=== PATIENT | female | born 1985 | race Caucasian/White ===

== ENCOUNTER 2019-05-20 13:29 | Inpatient (IN) | payer OTHER ==
[2019-05-20] MEDS ORDERED: LIDOCAINE 0.5% (PF) 5 MG/ML (50 ML SDV) SQ PRN (14:49)
[2019-05-20] MEDS ORDERED: METHYLERGONOVINE 0.2 MG/ML 1 ML AMP IM PRN (14:49)
[2019-05-20] MEDS ORDERED: OXYTOCIN 10 UNIT/ML 1 ML VIAL IM PRN (14:49)
[2019-05-20] MEDS ORDERED: TERBUTALINE 1 MG/ML VIAL SQ PRN (14:49)
[2019-05-20] MEDS ORDERED: CARBOPROST TROMETHAMINE 250 MCG/ML 1 ML AMP IM PRN (14:49)
[2019-05-20] MEDS ORDERED: LACTATED RINGERS 1,000 ML IV SCH (15:00)
[2019-05-20 15:28] LABS: Basophils % (A) 0 %; Eosinophils # (A) 0.1 k/uL (0-0.7); Eosinophils % (A) 1 %; HCT 37.3 % (34.0-46.0); HGB 12.3 gm/dL (11.4-16.0); Lymphocytes # (A) 1.9 k/uL (1.0-4.8); Lymphocytes % (A) 14 %; MCH 27.9 pg (25.0-35.0); MCHC 32.9 g/dL (31.0-37.0); MCV 84.9 fL (80.0-100.0); Monocytes # (A) 0.6 k/uL (0-1.0); Monocytes % (A) 5 %; Neutrophils # (A) 10.8 k/uL (1.3-7.7); Neutrophils % (A) 79 %; Platelet Count 266 k/uL (150-450); RDW 15.1 % (11.5-15.5); WBC 13.6 k/uL (3.8-10.6)
--- NOTE | 2019-05-20 16:46 | P.HPOB ---
History of Present Illness H&P Date: 05/20/19 Chief Complaint: Labor at 39-4/7 weeks' gestation This is a 33-year-old 2 para 1001 woman with an estimated due date of 05/24/2019 who presents at 39+ weeks gestation in spontaneous active labor. Regular onset of painful uterine contractions started earlier today. Upon presentation she was found to be 4+ centimeters dilated and jackson every 1- 2 minutes. She denies leakage of fluids or vaginal bleeding. She's had an entirely unremarkable up until this point. Her obstetric history is significant for a previous on term spontaneous vaginal delivery in 2016 of a 7 lbs. 15 oz. male infant. She is blood type O positive, antibody screen negative, rubella immune, VDRL nonreactive, hep Meenu surface antigen negative, HIV negative, gonorrhea and clinic cultures negative, diabetes screening within normal limits, group B strep negative. . Review of Systems All systems: negative Past Medical History Past Medical History: No Reported History Additional Past Medical History / Comment(s): 1 History of Any Multi-Drug Resistant Organisms: None Reported Past Surgical History: No Surgical Hx Reported Past Anesthesia/Blood Transfusion Reactions: No Reported Reaction Smoking Status: Never smoker - Past Family History Father History Unknown: Yes Medications and Allergies Home Medications Medication Instructions Recorded Confirmed Type 2/Iron/Folic Acid/Om3 1 tab PO DAILY 10/29/15 05/20/19 History [Complete Avni Dha] Allergies Allergy/AdvReac Type Severity Reaction Status Date / Time No Known Allergies Allergy Verified 05/20/19 13:38 Exam Vital Signs Temp Pulse Resp BP Pulse Ox 05/20/19 15:53 96.5 F L 117 H 18 139/83 100 Intake and Output 05/20/19 05/20/19 05/20/19 06:59 14:59 22:59 Other: Weight 91.172 kg This is a comfortable appearing, visibly gravid female. Targeted physical exam is performed. Cervix is 7+ centimeters dilated with bulging membranes. She saw 100% effaced. Artificial rupture of membranes is undertaken and copious clear fluid is noted. heart tones are category 1. She is jackson every 2 minutes spontaneously. Results Result Diagrams: 05/20/19 15:05 Abnormal Lab Results - Last 24 Hours (Table) 05/20/19 Range/Units 15:05 WBC 13.6 H (3.8-10.6) k/uL Neutrophils # 10.8 H (1.3-7.7) k/uL Assessment and Plan (1) 39 weeks gestation of Current Visit: No Status: Acute Code(s): Z3A.39 - 39 WEEKS GESTATION OF SNOMED Code(s): 37828284 (2) Spontaneous onset of labor Current Visit: No Status: Acute Code(s): SRQ1111 - SNOMED Code(s): 37679181 Plan: 33-year-old 2 para 1 woman admitted at 39+ weeks gestation in spontan eous active labor. status currently reassuring. She is group B strep negative and Rh+. I anticipate normal spontaneous vaginal delivery.
[2019-05-20 17:02] VITALS: BMI 32.4
[2019-05-20] MEDS ORDERED: BENZOCAINE/MENTHOL SPRAY 1 GM/SPRAY AEROSOL TOPICAL PRN (19:10)
[2019-05-20] MEDS ORDERED: WITCH HAZEL 1 EACH MED..PAD TOPICAL PRN (19:10)
[2019-05-20] MEDS ORDERED: ACETAMINOPHEN TAB 325 MG TAB PO PRN (19:10)
[2019-05-20] MEDS ORDERED: LANOLIN CREAM 5 GM TUBE TOPICAL PRN (19:10)
[2019-05-20] MEDS ORDERED: diphenhydrAMINE 25 MG CAP PO PRN (19:10)
[2019-05-20] MEDS ORDERED: HYDROCORTISONE 2.5% RECTAL CREAM 30 GM TUBE RECTAL PRN (19:10)
[2019-05-20] MEDS ORDERED: IBUPROFEN 600 MG TAB PO PRN (19:10)
[2019-05-20] MEDS ORDERED: SIMETHICONE 80 MG CHEWABLE PO PRN (19:10)
[2019-05-20] MEDS ORDERED: diphenhydrAMINE 50 MG/ML 1 ML VIAL IVP PRN ×2 (19:10)
[2019-05-20] MEDS ORDERED: diphenhydrAMINE 50 MG CAP PO PRN (19:10)
[2019-05-20] MEDS ORDERED: ZOLPIDEM 5 MG TAB PO PRN (19:10)
--- NOTE | 2019-05-20 19:10 | P.PROBDLV ---
Vaginal Delivery Note - . Vaginal Delivery Note: Findings: Male infant in the vertex left occiput anterior position with Apgars of 9 at 1 minute and 9 at 5 minutes weighing 8 lbs. 5 oz., 3785 g. Intact, three-vessel cord placenta. First-degree perineal laceration. Mild atony with EBL approximately 300 mL's. Delivery summary: This is a 33-year-old 2 para 1001 woman who presented in spontaneous active labor at 39-3/7 weeks gestation. Following admission she did undergo artificial rupture of membranes and had an unremarkable progression to complete cervical dilation. She had reassuring heart tones throughout the first stage of labor. She had strong urge to push once complete and was repositioned and prepped in the modified Kylah position. After an approximately 5 minute second stage of labor she was . The head delivered from the left occiput anterior position followed rapidly by the anterior and posterior shoulders. The resting. Delivered onto the field. The nose and mouth were bulb suctioned. The cord was clamped and cut. Apgars were 9 at 1 minute and 9 at 5 minutes and weight was 8 lbs. 5 oz. An intact, three- vessel cord placenta was rapidly delivered after a two-minute third stage of labor. The uterus was moderately atonic which was managed with bimanual massage and Pitocin intravenously. The vagina was then inspected and a first 3 perineal laceration was noted this was infused with lidocaine and repaired with single [id number] stitch of 0 Vicryl suture. Mild atony again occurred which was managed with fundal massage. She was given a single dose of Methergine IM. EBL was approximately 300 mL's. At that point The rest the vagina was inspected, the uterus was firm and at the level of the umbilicus and both mother and were doing well post delivery in the room.
[2019-05-20] MEDS ORDERED: OXYTOCIN 20 UNITS/1000 ML NS 1,000 ML IV SCH (19:15)
[2019-05-20] MEDS: SENNOSIDES-DOCUSATE SODIUM 1 EACH TAB PO SCH (20:09)
[2019-05-21 05:46] VITALS: RESP 18
[2019-05-21] MEDS: SENNOSIDES-DOCUSATE SODIUM 1 EACH TAB PO SCH (08:00)
[2019-05-21 08:12] LABS: Basophils % (A) 0 %; Eosinophils # (A) 0.1 k/uL (0-0.7); Eosinophils % (A) 1 %; HCT 33.2 % (34.0-46.0); Lymphocytes # (A) 2.3 k/uL (1.0-4.8); Lymphocytes % (A) 14 %; MCH 27.9 pg (25.0-35.0); MCHC 33.2 g/dL (31.0-37.0); MCV 84.1 fL (80.0-100.0); Monocytes # (A) 0.9 k/uL (0-1.0); Monocytes % (A) 6 %; Neutrophils % (A) 79 %; Platelet Count 244 k/uL (150-450); RBC 3.95 m/uL (3.80-5.40); RDW 14.3 % (11.5-15.5); WBC 16.5 k/uL (3.8-10.6)
--- NOTE | 2019-05-21 11:03 | P.DS ---
Providers Date of admission: 05/20/19 14:25 Expected date of discharge: 05/21/19 Attending physician: Jenna Jimenez Primary care physician: Stated None - Discharge Diagnosis(es) (1) 39 weeks gestation of Current Visit: No Status: Acute (2) Spontaneous onset of labor Current Visit: No Status: Acute (3) Normal spontaneous vaginal delivery Current Visit: No Status: Acute Hospital Course: This is a 33-year-old 2 now para 2 woman who presented at 39+ weeks gestation in spontaneous active labor. Following admission she underwent artificial rupture of membranes. She had an unremarkable and rapid progression to complete cervical dilation. She had a rapid second stage of labor to deliver a liveborn male over an intact perineum with Apgars of 9 at 1 minute and 9 at 5 minutes weighing 8 lbs. 5 oz. Her course was unremarkable. By day #1 she was feeling very well. She had minimal lochia, she was breast-feeding successfully, her vital signs were stable and she was ambulating and voiding without difficulty. She was therefore discharged home with routine instructions for care and follow-up. Procedures: Patient Condition at Discharge: Good Plan - Discharge Summary New Discharge Prescriptions: No Action 2/Iron/Folic Acid/Om3 [Complete Dha] 1 tab PO DAILY Discharge Medication List 2/Iron/Folic Acid/Om3 [Complete Dha] 1 tab PO DAILY 10/29/15 [History] Follow up Appointment(s)/Referral(s): Jenna Jimenez MD [STAFF PHYSICIAN] - 6 Weeks Activity/Diet/Wound Care/Special Instructions: Follow-up in the office in 6 weeks . Call with any concerning signs or symptoms including heavy vaginal bleeding, severe abdominal pain, fever greater than 101, swelling or redness of the lower extremities, foul vaginal discharge, or signs of depression. Nothing in the vagina for 6 weeks after delivery, specifically no intercourse. Discharge Disposition: HOME SELF-CARE
--- NOTE | 2019-05-21 11:28 | P.MSEPDOC ---
Presenting Problems - Arrival Data Date of Arrival on Unit: 05/20/19 Time of Arrival on Unit: 14:35 Mode of Transport: Wheelchair - Complaint OB-Reason for Admission/Chief Complaint: Possible Onset of Labor Comment: pt presents for contractions Medical History - Information : 2 Para: 1 Term: 1 : 0 Abortions: Spontaneous or Elective: 0 Number of Living Children: 1 - Gestational Age Gestational Age by EDGARDO (wks/days): 39 Weeks and 4 Days Review of Systems - Review of Systems Constitutional: No problems Breast: No problems ENT: No problems Cardiovascular: No problems Respiratory: No problems Gastrointestinal: No problems Genitourinary: No problems Musculoskeletal: No problems Neurological: No problems Skin: No problems Vital Signs - Temperature Temperature: 98.3 F Temperature Source: Oral - Pulse Right Brachial Pulse Rate: 108 Pulse Assessment Method: Automatic Cuff - Respirations Respiratory Rate: 18 Oxygen Delivery Method: Room Air - Blood Pressure Right Arm Blood Pressure: 121/76 Blood Pressure Mean: 91 Blood Pressure Source: Automatic Cuff Medical Screen Scoring (Pre) - Cervical Exam Dilation: 4-7 cm = 2 Effacement: More than 50% = 2 Membranes: Intact - Uterine Contractions Frequency: > or = 36 weeks =2 Duration: > 40 seconds = 2 Intensity: Contraction palpated strong = 1 - Maternal Vital Signs Maternal Temperature: N/A Maternal Blood Pressure: N/A Signs of Preeclampsia: N/A Maternal Respirations: N/A - Maternal Trauma Maternal Trauma: N/A - Assessment - Baby A Baseline FHR: 140 Heart Rate - NICHD Category: Category I (Normal) = 0 NST: Reactive Position: N/A Station: N/A - Total Score - Baby A Total Score - Baby A: 9 - Total Score - Baby B Total Score - Baby B: 9 - Total Score - Baby C Total Score - Baby C: 9 - Level of Risk - Baby A Level of Risk - Baby A: Medium (6-9) - Level of Risk - Baby B Level of Risk - Baby B: Medium (6-9) - Level of Risk - Baby C Level of Risk - Baby C: Medium (6-9) Physician Notification (Pre) - Physician Notified Physician Notified Date: 05/20/19 Physician Notified Time: 14:35 Physician/Practitioner Notifed:: Dr. Jimenez Spoke With: Dr. Hurtubise New Order Received: Yes - Notification Comment Comment: admit for labor Disposition - Disposition OB Disposition: Admit, LDRP Suite I agree with the RN Medical Screening Exam: Yes Risk & Benefit of care provided described in d/c instruction: Yes Diagnosis: ENCOUNTER FOR FULL-TERM UNCOMPLICATED DELIVERY
[2019-05-21 17:22] VITALS: BP 122/71; PULSE 88; TEMP 97.7
== END 2019-05-21 19:50 | disposition home or self-care (01) | DRG 807 ==
LOC: FBPOP 13:29 → 4FBP 14:25
PROVIDERS: ADMIT Obstetrics & Gynecology; ATTEND Obstetrics & Gynecology
PROC: 10907ZC Drainage of Amniotic Fluid, Therapeutic from Products of Conception, Via Natural or Artificial Opening (ICD-10-PCS; principal; 2019-05-20)
PROC: 10E0XZZ Delivery of Products of Conception, External Approach (ICD-10-PCS; principal; 2019-05-20)
PROC: 0HQ9XZZ Repair Perineum Skin, External Approach (ICD-10-PCS; principal; 2019-05-20)
DX: O70.0 First degree perineal laceration during delivery (principal); Z37.0 Single live birth; Z3A.39 39 weeks gestation of pregnancy
CPT/HCPCS: 59025; 85025; 86850; 86900; 86901; 99213